=== PATIENT | female | born 1980 | race African-American/Black ===

== ENCOUNTER 2017-07-23 23:43 | Emergency (ER) | payer BC ==
[~2017-07-23] VITALS: Ht 167.6 cm; Wt 62.6 kg
[~2017-07-23 23:43] MED LIST: CEPHALEXIN500 MG OR; CIPRO500 MG OR
[2017-07-24] MEDS ORDERED: PREDNISONE5 MG PO (00:03)
[2017-07-24] MEDS ORDERED: ORENCIA125 MG/ML SC (00:03)
[2017-07-24] MEDS ORDERED: STERAPRED DS10 MG PO (01:31)
[2017-07-24 01:58] VITALS: BP 97/67
== END 2017-07-24 01:55 | disposition home or self-care (01) | DRG 558 ==
LOC: ED 23:43
DX: M75.52 Bursitis of left shoulder (principal)

== ENCOUNTER 2019-06-21 17:00 | Emergency (ER) | payer BC ==
[~2019-06-21] VITALS: Ht 167.6 cm; Wt 63.6 kg
[~2019-06-21 17:00] MED LIST changes: +ORENCIA125 MG/ML SC; +PREDNISONE5 MG PO; +STERAPRED DS10 MG PO
[2019-06-21 18:24] LABS: HEMATOCRIT 35.9 % (37.0-47.0); HEMOGLOBIN 11.2 g/dl (12.0-16.0); IMMATURE GRANULOCYTES 0.4 % (0.0-5.0); MEAN CORPUSCULAR HGB 22.2 pG CALC (26.0-32.0); MEAN CORPUSCULAR HGB CONC 31.2 g/L CALC (32.0-36.0); NEUT# 6.05 thou/uL (2.00-7.15); RED BLOOD COUNT 5.05 mill/uL (4.20-5.60); RED CELL DISTRI WIDTH 14.7 % (11.5-15.5)
[2019-06-21 18:26] LABS: MEAN CELL VOLUME 71.1 fL CALC (80.0-100.0)
[2019-06-21 18:40] LABS: ANION GAP 12 (6-22 (CALC)); BUN 12 mg/dL (7-17); BUN/CREATININE RATIO 16 (12-20 (CALC)); CARBON DIOXIDE 26 mmol/l (22-30); CHLORIDE 105 mmol/l (95-108); CREATININE 0.7 mg/dL (0.5-1.0); GFR > 60 ML/MIN (>=60 (CALC)); GFR FOR AFR.AMER. > 60 ML/MIN (>=60 (CALC)); POTASSIUM 4.2 mmol/l (3.5-5.1); SODIUM 139 mmol/l (137-146)
[2019-06-21 18:56] LABS: BETA-HCG, QUANT(RESULT NUMBER) 3 mIU/mL
[2019-06-21 21:23] VITALS: BP 104/62
[2019-06-21 22:15] LABS: URINE BILIRUBIN - DIPSTICK NEGATIVE (NEGATIVE); URINE BLOOD DIPSTICK MODERATE (NEGATIVE); URINE COLOR YELLOW; URINE GLUCOSE - DIPSTICK NEGATIVE (NEGATIVE); URINE KETONE NEGATIVE (NEGATIVE); URINE LEUK ESTERASE NEGATIVE (NEGATIVE); URINE NITRITE - DIPSTICK NEGATIVE (Negative); URINE PROTEIN - DIPSTICK 30 mg/dL (NEG-TRACE); URINE SPECIFIC GRAVITY >=1.030; URINE UROBILINOGEN - DIPSTICK 0.2 E.U./dL (0.2)
[2019-06-21 22:26] LABS: URINE RBC 0-2 RBC/hpf (0-5); URINE WBC 0-2 WBC/hpf (0-5)
== END 2019-06-21 21:37 | disposition home or self-care (01) | DRG 779 ==
LOC: ED 17:00
PROVIDERS: Family Medicine
DX: O03.6 Delayed or excessive hemorrhage following complete or unspecified spontaneous abortion (principal)